=== PATIENT | female | born 1955 | race Caucasian/White ===

== ENCOUNTER 2022-08-31 10:41 | Emergency (ER) | payer MEDICARE, MEDICAID, SELFPAY ==
[2022-08-31 10:42] VITALS: BP 132/89; PULSE 75; RESP 16; TEMP 36.8; O2SAT 99; BMI 24.7
[2022-08-31 10:56] VITALS: BP 148/69; PULSE 70; RESP 18; O2SAT 99
--- NOTE | 2022-08-31 11:18 | EKG12_ITS ---
Test Reason : CP Blood Pressure : / mmHG Vent. Rate : 070 BPM Atrial Rate : 070 BPM P-R Int : 162 ms QRS Dur : 066 ms QT Int : 372 ms P-R-T Axes : 038 013 024 degrees QTc Int : 401 ms Somatic/Motion Artifact Normal sinus rhythm Nonspecific ST abnormality Abnormal ECG Confirmed by MODESTO ORELLANA, KEON ([id number]), medical editor DARRON WEEKS ([id number]) on 09/02/2022 8:51:35 AM Referred By: DUSTIN Confirmed By:KEON SALVADOR MD
--- NOTE | 2022-08-31 11:18 | ED.VIS.CHEST ---
HPI History of Present Illness Chief Complaint: Chest Pain Informant: patient and family Narrative Narrative: It takes quite some time to get some of the details. Evidently the patient saw her physician today for some shoulder pain. I can get from her that she has had shoulder pain in the scapula ever since Wednesday. It is really around the right scapula. She states of course it hurts when she moves it. It sounds like she is not short of breath with this. She has not been diaphoretic although she commonly gets sweats that has been going on for years. It sounds like the sweats are not different or new or coordinated in any way with this pain. She also states she gets pain across her anterior chest but that has been going on for a week or so. It is hard to get how long that is or if it is in 1 area of the chest or the whole chest. She did describe it as sharp once. She states it did hurt to take a deep breath once but it does not hurt now. Again it sounds like this does not cause her to be short of breath. She has not had fevers or chills. No nausea vomiting. No leg pain or swelling. No trips or travel. Her mother had bypass surgery but it was in her mid 70s. She has no blood pressure cholesterol but does have diabetes for which she takes metformin. She was seen today in the primary office. I have office notes from that visit but they are not referring to this pain on my review. They may have expedited her travel over here though. [facility] Medical History Diabetes mellitus Nervousness Allergy/AdvReac Type Severity Reaction Status Date / Time No Known Allergies Allergy Verified 08/31/22 10:45 Surgical History H/O: hysterectomy Social History Smoking Status: Former smoker ROS ROS ED Constitutional Constitutional ED: Denies chills or fever(s) Eyes Eyes: Denies blurry vision or change in vision ENT ENT ED: Denies ear pain, rhinorrhea or sore throat Cardiovascular Cardiovascular: Reports as per HPI; Denies palpitations or racing heartbeat Respiratory/Chest Respiratory/Chest: Denies cough or dyspnea Gastrointestinal Gastrointestinal: Denies nausea or vomiting Genitourinary Genitourinary ED: Denies dysuria Musculoskeletal Musculoskeletal: Reports neck pain and other Details: She states initially the pain in her right shoulder was going up the side of her right neck but that is not happening anymore. Integumentary Denies rash Neurologic Neurologic: Denies headache(s), paresthesias or weakness Psychiatric Psychiatric: Reports anxiety Hematologic/Lymphatic Hematologic/Lymphatic: Denies easy bleeding or easy bruising Allergic/Immunologic Allergic/Immunologic ED: Denies urticaria EXAM Physical Exam Const Vital Signs: 08/31/22 10:42 08/31/22 10:56 08/31/22 10:59 Temperature 98.2 F Temperature Source Temporal Pulse Rate 75 70 Respiratory Rate 16 18 Respiratory Effort Normal Non-Labored Blood Pressure 132/89 H 148/69 H Blood Pressure Mean 103 95 Pulse Ox 99 99 Oxygen Delivery Method Room Air Room Air 08/31/22 11:18 08/31/22 12:49 Temperature Temperature Source Pulse Rate 63 Respiratory Rate 17 Respiratory Effort Blood Pressure 125/72 H Blood Pressure Mean 89 Pulse Ox 99 Oxygen Delivery Method Room Air Room Air Positive well nourished and well developed General Appearance ED: well developed and NAD HEENT Reports moist mucous membranes HEENT Narrative: No sinus tenderness or trauma. Eyes General Eye ED: Negative for scleral icterus Neck supple Neck Narrative: No tenderness or pain with range of motion at this time Chest Wall Chest Narrative: No rashes or swelling. But she does have reproducible periscapular tenderness. Resp normal respiratory effort and clear to auscultation bilaterally Cardio regular rate, regular rhythm and no murmurs Rate: other Other Details: No muffled heart tones. No murmur. GI normal to inspection, nondistended, normoactive bowel sounds and soft to palpation Neuro Sensorium / Orientation: awake and alert Psych mental status grossly normal Skin no rashes or lesions noted MDM MDM MDM Narrative Medical decision making narrative: Chest x-ray and CTA showed no acute intrathoracic process. CBC is normal. Electrolytes are normal. D-dimer was elevated and this was the reason for this CTA along with her chest pain. Troponin was negative at 6. We rechecked this for thoroughness and it was down to 5. I think patient is okay to go home. She now states she thinks she may have pulled this at work. She just wants to take Tylenol or Motrin. She does not want anything stronger. We discussed the option of ice and consideration of heat cautiously. We discussed reasons to return. Lab Data Attestation: I reviewed the patient's lab results. Labs: Laboratory Results - last 24 hr 08/31/22 08/31/22 08/31/22 10:58 10:58 10:58 WBC 7.6 RBC 4.36 Hgb 13.3 Hct 41.5 MCV 95.2 MCH 30.5 MCHC 32.0 RDW Std Deviation 46.7 H RDW Coeff of [place] 13.3 Plt Count 322 MPV 9.5 Immature Gran % (Auto) 0.400 Neut % (Auto) 65.7 Lymph % (Auto) 26.4 [place] % (Auto) 6.3 Eos % (Auto) 0.9 Baso % (Auto) 0.3 Absolute Neuts (auto) 5.0 Absolute Lymphs (auto) 2.01 Nucleated RBC % 0 D-Dimer Quant (PE/DVT) 1.79 H* Sodium 138 Potassium 3.9 Chloride 105 Carbon Dioxide 29.0 Anion Gap 4 L BUN 13 Creatinine 0.70 Estim Creat Clear Calc 43.18 Est GFR (MDRD) Af Amer 108 Est GFR (MDRD) Non-Af 89 BUN/Creatinine Ratio 18.7 Glucose 102 Calcium 9.7 Troponin I High Sens 6 08/31/22 13:45 WBC RBC Hgb Hct MCV MCH MCHC RDW Std Deviation RDW Coeff of [place] Plt Count MPV Immature Gran % (Auto) Neut % (Auto) Lymph % (Auto) [place] % (Auto) Eos % (Auto) Baso % (Auto) Absolute Neuts (auto) Absolute Lymphs (auto) Nucleated RBC % D-Dimer Quant (PE/DVT) Sodium Potassium Chloride Carbon Dioxide Anion Gap BUN Creatinine Estim Creat Clear Calc Est GFR (MDRD) Af Amer Est GFR (MDRD) Non-Af BUN/Creatinine Ratio Glucose Calcium Troponin I High Sens 5 Radiography Diagnostic Testing: Clinical Impression(s) from Imaging Studies Chest X-Ray 08/31/22 11:30 IMPRESSION: The lungs are clear. 3.5 cm x 2 cm chondroid calcification of the left humeral neck. Electronically Signed: Jin Soto MD at 11:55 EST , Chest CTA 08/31/22 12:53 IMPRESSION: No evidence of a pulmonary embolism. Hyperinflation and mild degree of Saurabh this changes worse in the posterior aspect of both lower lobes. Electronically Signed: Jin Soto MD at 14:08 EST , Chest x-ray showed no acute intrathoracic process. There was a 2 x 3 and half centimeter chondroid calcification of the left humeral neck proximally. CTA read by radiology shows no acute process. No dissection or pulmonary embolus. EKG Initial EKG: Comments: EKG done for chest and scapular pain and read by me shows a normal sinus rhythm with overall rate of 70. There is some baseline variation. No ectopy. Nonspecific ST changes that might be related to baseline. No acute ST elevation or depression is noted. [place] interval, QRS duration and QTc are normal. Allowing for the baseline motion it is overall similar to 31 August earlier today at the office. Discharge Plan Triage Chief Complaint: Chest Pain ED Provider: Rancho Seals Dx/Rx/DC Orders Clinical Impression: Pain of right scapula Instructions: ED Pain, Acute, Uncertain Cause Primary Care Provider: Tayo Adams Referrals: Tayo Adams, DO [Primary Care Provider] - 3-5 Days if not improving Disposition Disposition: Home, Self Care
[2022-08-31 11:29] LABS: Absolute Lymphocyte Count 2.01 X10^3/uL (0.83-4.51); Basophil# 0.02 X10^3/uL; Basophil% 0.3 % (0-1); Eosinophil# 0.07 X10^3/uL; Eosinophils% 0.9 % (0-5); Hematocrit 41.5 % (37-47); Hemoglobin 13.3 g/dL (12.0-15.0); Lymphocyte # 2.01 X10^3/ul (0.83-4.51); Lymphocyte % 26.4 % (19-41); Mean Corpuscular Hgb 30.5 pg (27.0-32.0); Mean Corpuscular Volume 95.2 fL (81-99); Mean Platelet Vol. 9.5 fl (6.2-12.0); Monocyte# 0.48 X10^3/uL; Monocyte% 6.3 % (0-10); NRBC Flagged by Analyzer 0 % (0-5); Neutrophil # 5.01 X10^3/uL (2.7-7.7); Neutrophil % 65.7 % (47-70); Platelet Count 322 K/mm3 (150-450); RBC Distribution Width CV 13.3 % (11.6-14.6); RBC Distribution Width SD 46.7 fl (35.1-43.9); Red Blood Count 4.36 M/mm3 (4.2-5.4); White Blood Count 7.6 K/mm3 (4.4-11.0)
--- NOTE | 2022-08-31 11:30 | RAD_ITS ---
STUDY: X-RAY CHEST REASON FOR EXAM: Female, 67 years old. Right shoulder pain and chest pain. TECHNIQUE: Single AP portable view of the chest. COMPARISON: None. FINDINGS: EKG electrodes are seen. The lungs are clear and expanded. There is no demonstrated pleural abnormality. Normal size heart. Normal mediastinum and darlin. Normal visualized pulmonary arteries. There is atherosclerotic calcification of the aortic arch with tortuosity. Normal visualized thoracic spine. There is a 3.5 cm x 2 cm chondroid calcification in the left humeral neck. There is no demonstrated abnormality of the visualized soft tissue structures of the upper abdomen. RAD/Chest 1 View (Portable) IMPRESSION: The lungs are clear. 3.5 cm x 2 cm chondroid calcification of the left humeral neck. Electronically Signed: Jin Soto MD at 11:55 EST ,
[2022-08-31 11:47] LABS: Anion Gap 4 (5-15); BUN 13 mg/dL (7-18); BUN/Creat Ratio 18.7 RATIO (10-20); Calcium,Total 9.7 mg/dL (8.5-10.1); Chloride 105 mmol/L (98-107); EST Glomerular Filtration Rate 89 mL/min (>60); Est Glom Filt Rate - Afr Amer 108 mL/min (>60); Estimated Creatinine Clearance 43.18 ml/min; Glucose 102 mg/dL (74-106); Potassium 3.9 mmol/L (3.5-5.1); Sodium Level 138 mmol/L (136-145); Troponin-I HS (w/2H Reflex) 6 pg/mL (3.0-54.0)
[2022-08-31 12:42] LABS: D-Dimer Quantitative (DVT/PE) 1.79 FEU/ug/m (0.27-0.49)
[2022-08-31 12:49] VITALS: BP 125/72; PULSE 63; RESP 17; O2SAT 99
--- NOTE | 2022-08-31 12:53 | CT_ITS ---
STUDY: CTA CHEST REASON FOR EXAM: Female, 67 years old. Intermittent right shoulder pain. RADIATION DOSAGE (If Supplied By Facility): CTDIvol = ( 4.29 ) mGy, DLP = ( 128.65 ) mGycm TECHNIQUE: The examination was performed with the intravenous administration of IV 100mL [id number]-[id number]. Post-processing of the angiographic images was performed, with multiplanar reformation and 3D reconstruction. Individualized dose optimization techniques were used for this CT. COMPARISON: Comparison is made with prior chest radiograph done earlier today. FINDINGS: Normal enhancement of the main pulmonary artery and right and left pulmonary arteries. Normal enhancement of the bilateral peripheral pulmonary arteries. There is no demonstrated pulmonary embolism. Normal thoracic aorta and visualized great vessels. There is no demonstrated aortic dissection. Normal heart and pericardium. Normal mediastinum. Normal hilar regions. Normal visualized trachea and bronchi. Hyperinflation. Emphysematous changes with bullous formation in the posterior aspect of both the right and left lower lobes. Normal pleura. Normal chest wall structures. There are degenerative changes of thoracic spine. Normal visualized upper abdomen. CT/CTA Chest W/WO Contrast IMPRESSION: No evidence of a pulmonary embolism. Hyperinflation and mild degree of Saurabh this changes worse in the posterior aspect of both lower lobes. Electronically Signed: Jin Soto MD at 14:08 EST ,
[2022-08-31 13:25] LABS: Reflex Troponin-HS? (from REC) Y
[2022-08-31 14:16] LABS: Troponin-I HS 5 pg/mL (3.0-54.0)
[2022-08-31 14:50] VITALS: BP 126/72; PULSE 70; RESP 16; O2SAT 98
== END 2022-08-31 14:51 | disposition home or self-care (01) ==
PROVIDERS: Emergency Provider Emergency Medicine; PCP Student in an Organized Health Care Education/Training Program; Visit Provider Emergency Medicine
DX: M25.511 Pain in right shoulder (principal); Z87.891 Personal history of nicotine dependence
CPT/HCPCS: 71045; 71275; 80048; 84484; 85025; 85379; 93005; 99284; Q9967